=== PATIENT | female | born 1985 | race Caucasian/White ===

== ENCOUNTER 2020-10-08 06:11 | Emergency (ER) | payer BC ==
[~2020-10-08] VITALS: Ht 160 cm; Wt 92.5 kg
[2020-10-08] MEDS ORDERED: SODIUM CHLORIDE 0.9% 1000ML 1,000 ML IV STA (06:36)
[2020-10-08] MEDS ORDERED: DEXAMETHASONE SOD PHOS INJ 4 MG/ML VIAL IV ONE (06:45)
[2020-10-08] MEDS ORDERED: CEFTRIAXONE 1 GM VIAL IV ONE (06:45)
[2020-10-08] MEDS ORDERED: ONDANSETRON HCL INJ 2MG/ML 2ML 2 MG/ML VIAL IV ONE (06:45)
[2020-10-08] MEDS ORDERED: FAMOTIDINE 20 MG/2 ML VIAL IV ONE ×2 (06:45→07:07)
[2020-10-08] MEDS ORDERED: CEFTRIAXONE 1 GM in SODIUM CHLORIDE 0.9% 50ML 50 ML IV ONE (07:00)
[2020-10-08] MEDS ORDERED: CEFTRIAXONE 1 GM VIAL ONE (07:07)
[2020-10-08] MEDS ORDERED: DEXAMETHASONE SOD PHOS INJ 4 MG/ML VIAL ONE (07:07)
[2020-10-08] MEDS ORDERED: ONDANSETRON HCL INJ 2MG/ML 2ML 2 MG/ML VIAL ONE (07:07)
[2020-10-08] MEDS ORDERED: SODIUM CHLORIDE 0.9% 1000ML 1,000 ML ONE (07:07)
[2020-10-08] MEDS ORDERED: STROMECTOL3 MG PO (07:20)
[2020-10-08] MEDS ORDERED: IPRAT-ALBUT 0.5-3 ML NEB (07:20)
[2020-10-08] MEDS ORDERED: ONDANSETRON ODT4 MG PO (07:20)
[2020-10-08] MEDS ORDERED: CEFDINIR300 MG PO (07:20)
[2020-10-08] MEDS ORDERED: DEXAMETHASONE4 MG PO (07:20)
[2020-10-08] MEDS ORDERED: TYLENOL # 31 EA PO (07:20)
[2020-10-08 07:55] VITALS: BP 120/72
== END 2020-10-08 07:56 | disposition home or self-care (01) ==
LOC: FSED 06:37
DX: U07.1 COVID-19 (principal); R05 Cough; J18.9 Pneumonia, unspecified organism; R09.02 Hypoxemia; R06.02 Shortness of breath
CPT/HCPCS: 71046; 80053; 85025; 99283; J0696; J1100; J2405; J7030